=== PATIENT | female | born 1955 | race Two or more races ===

== ENCOUNTER 2017-02-15 07:07 | Day surgery (SDC) | payer OTHER, BC ==
[~2017-02-15] VITALS: Ht 160 cm; Wt 89.8 kg
[~2017-02-15 07:07] MED LIST: ATORVASTATIN CA10 MG PO; FLORINEF ACETA0.1 MG PO; MIRALAX17 GM PO
[2017-02-15] MEDS ORDERED: SYNTHROID50 MCG PO (07:52)
[2017-02-15 08:00] LABS: HEMATOCRIT 28.9 % (36.0-46.0); MCH 30.3 PG (29.0-34.0); MCHC 31.5 G/DL (30.0-36.0); MCV 96.3 FL (83-99); MEAN PLAT.VOLUME 9.2 uM^3 (9.5-12.4); PLATELET COUNT 221 K/uL (156-360); RBC DIS.WIDTH-CV 15.9 % (11.8-14.6); RBC DIS.WIDTH-SD 56.2 % (39-53); WHITE BLOOD COUNT 6.9 K/uL (4.1-10.2)
[2017-02-15 08:18] VITALS: BP 134/63
[2017-02-15 08:24] LABS: ANION GAP 9 MEQ/L (2-14); CHLORIDE 96 MEQ/L (99-109); GFR ESTIMATE (CALCULATED) 6 mL/min/; GLUCOSE 99 mg/dL (70-99); POTASSIUM 5.5 MEQ/L (3.7-5.4); SAMPLE HEMOLYSIS CHECK 0; SAMPLE ICTERIC CHECK 0; SAMPLE LIPEMIA CHECK 0; SODIUM 137 MEQ/L (136-147); UREA NITROGEN (BUN) 73 mg/dL (9-23)
[2017-02-15 09:04] LABS: METH RESISTANT S AUREUS PCR NEGATIVE (NEGATIVE); PROBE CHECK PASS; SPECIMEN PROCESSING CONTROL PASS
[2017-02-15] MEDS ORDERED: NORCO 5/3251 TABLET PO (12:17)
[2017-02-15 13:28] VITALS: BP 131/69
[2017-02-15 14:38] VITALS: BP 117/53
== END 2017-02-15 14:57 | disposition home or self-care (01) ==
LOC: SDC 07:07
PROVIDERS: Surgery
PROC: 0JWT33Z Revision of Infusion Device in Trunk Subcutaneous Tissue and Fascia, Percutaneous Approach (ICD-10-PCS; principal; 2017-02-15)
DX: T85.611A Breakdown (mechanical) of intraperitoneal dialysis catheter, initial encounter (principal); N18.6 End stage renal disease; Z99.2 Dependence on renal dialysis; K66.0 Peritoneal adhesions (postprocedural) (postinfection); E03.9 Hypothyroidism, unspecified; E78.4 Other hyperlipidemia
CPT/HCPCS: 80048; 85027; 87641; 93005; C1750; J0131; J0690; J1100; J1170; J2250; J2405; J2710; J3010; S0020